=== PATIENT | male | born 1975 | race African-American/Black ===

== ENCOUNTER 2021-12-08 11:44 | Emergency (ER) | payer MEDICAID ==
[~2021-12-08] VITALS: Ht 165.1 cm; Wt 105.0 kg
[2021-12-08] MEDS ORDERED: LIDOCAINE HCL/PF 1% 10 MG/ML 5ML VIAL INFIL ONE (12:30)
[2021-12-08] MEDS ORDERED: BACITRACIN ZINC OINT UDPKT TOP ONE (12:30)
[2021-12-08] MEDS ORDERED: TETANUS, DIPHTHERIA, PERTUSSIS VAC/PF 0.5ML (>10YR OLD) IM ONE (12:30)
[2021-12-08] MEDS ORDERED: TOPUD MT (12:50)
[2021-12-08] MEDS ORDERED: AMOX-424 MT (12:50)
[2021-12-08] MEDS ORDERED: DOXY100T2 MT (12:50)
[2021-12-08] MEDS ORDERED: LIDOCAINE HCL 1% 10 MG/ML 10ML VIAL IJ NR (13:00)
[2021-12-08 14:03] VITALS: BP 128/70
== END 2021-12-08 14:04 | disposition home or self-care (01) ==
LOC: ER 11:44
DX: L03.012 Cellulitis of left finger (principal)
CPT/HCPCS: 10060; 90471; 90715; 99283; J3490; Z7610

== ENCOUNTER 2022-07-11 08:25 | Emergency (ER) | payer MEDICAID ==
[~2022-07-11] VITALS: Ht 175.3 cm; Wt 104.0 kg
[~2022-07-11 08:25] MED LIST: AMOX-424 MT; DOXY100T2 MT; TOPUD MT
[2022-07-11 08:29] VITALS: BP 148/98
== END 2022-07-11 09:43 | disposition home or self-care (01) ==
LOC: ER 08:25
DX: B34.9 Viral infection, unspecified (principal); I10 Essential (primary) hypertension; Z68.33 Body mass index [BMI] 33.0-33.9, adult
CPT/HCPCS: 99281

== ENCOUNTER 2025-05-27 09:09 | Emergency (ER) | payer MEDICAID, OTHER ==
[~2025-05-27] VITALS: Ht 175.3 cm; Wt 123.0 kg
[2025-05-27 09:41] VITALS: TEMP 37; O2SAT 97
[2025-05-27] MEDS ORDERED: IBUP-1455 MT (10:39)
[2025-05-27 11:10] VITALS: BP 152/96; PULSE 85; RESP 16; O2SAT 100
== END 2025-05-27 11:11 | disposition home or self-care (01) ==
LOC: ER 09:09
DX: M79.661 Pain in right lower leg (principal); Z79.899 Other long term (current) drug therapy
CPT/HCPCS: 93971; 99284